=== PATIENT | female | born 1965 | race African-American/Black ===

== ENCOUNTER 2019-05-13 20:02 | Inpatient (IN) | payer SELFPAY ==
[2019-05-13] MEDS ORDERED: Potassium Chloride 20 MEQ TAB ONE (21:29)
[2019-05-13] MEDS ORDERED: Ondansetron ODT 4 MG TAB PO PRN (23:44)
[2019-05-13] MEDS ORDERED: Acetaminophen 650 MG Suppository PR PRN (23:44)
[2019-05-13] MEDS ORDERED: Ondansetron PF 4 MG/2 ML Vial IVP PRN (23:44)
[2019-05-13 23:54] VITALS: BMI 28.0
[2019-05-13] MEDS ORDERED: cefTRIAXone\\ROCEPHIN 1 GM in Sodium Chloride 0.9% 100 ML IVPB SCH (23:59)
--- NOTE | 2019-05-14 02:09 | HP ---
PRIMARY CARE PHYSICIAN: The patient reported she follows with . CODE STATUS: Full code. TIME OF EVALUATION: 08:10 p.m. CHIEF COMPLAINT: Shortness of breath. HISTORY OF PRESENT ILLNESS: The patient is a 54-year-old female patient with past medical history of no significant medical problems except for being a cocaine abuser she reported long time ago. She reported she is clean now, came to the hospital after having severe gradually worsening shortness of breath, has been present for 2 days, associated with hypoxia, needing oxygen, saturation of 90%, temperature was 101.7, also associated with vomiting. The patient had no clear triggers. No alleviating factors. REVIEW OF SYSTEMS: CONSTITUTIONAL: No fever, chills or generalized weakness. RESPIRATORY: The patient has cough. No sputum production. Shortness of breath and hypoxia. CARDIOVASCULAR: No chest pain or palpitation. GASTROINTESTINAL: No nausea. No vomiting, diarrhea, or abdominal pain. COATER ASSOCIATE: No dizziness, headache or feeling lightheaded. GENITOURINARY: No burning on urination. EXTREMITIES: No leg swelling. All other systems were reviewed and negative except for the findings mentioned above. PAST MEDICAL HISTORY: Negative. FAMILY HISTORY: Reviewed and noncontributory to current presentation. PAST SURGICAL HISTORY: No surgical history. PSYCHIATRIC HISTORY: Anxiety and depression. SOCIAL HISTORY: The patient drinks socially every week. Former drug user, used to use crack cocaine, quit a month ago, is home with family. KNOWN ALLERGIES: No known drug allergies. REPORTED MEDICATIONS: None. PHYSICAL EXAMINATION: VITAL SIGNS: Blood pressure 122/80 with heart rate 86, respiratory rate was 18, temperature 99, pain was 0/10 and oxygen saturation was 91% on room air. Also reported to have been below 90s, reason why she received nasal cannula and saturation was 95% on 2 L. GENERAL APPEARANCE: The patient is alert, oriented, no acute distress. HEENT: Normal conjunctivae. Moist oral mucosa. Anicteric. No JVD. RESPIRATORY: Bilateral air entry. The patient has bilateral rales. No wheezes. Symmetric expansion. CARDIOVASCULAR: Normal rate and regular rhythm. No murmurs. No gallop. No edema. ABDOMEN: Soft. Normal bowel sounds. MUSCULOSKELETAL: Baseline range of motion and strength. SKIN: Warm and intact. No pallor. No rash. No redness. Capillary refill seems to be intact. NEURO: No evidence of any new focal weakness. Cranial nerves seems to be intact. PSYCH: The patient is in good mood. No anxiety. Optimal judgment. DIAGNOSTIC STUDIES: Angio showed no PE, multilobar pneumonia. CT abdomen and pelvis with contrast show multiple natalie areas of edema in the subcutaneous tissue nonspecific. LABS: Show white count 6.8, hemoglobin 12.7, MCV 92.1, platelet count 275. Coagulation; D-dimer 3.25. Chemistry; sodium 138, potassium 3.1, chloride 102, carbon dioxide 23, anion gap 16, BUN 8, creatinine 0.89, GFR 79, glucose 96, lactic acid 1.6, magnesium 2.0. LFTs were negative. Urine was done. The patient has urinary tract infection with white count 21 to 50 ASSESSMENT AND PLAN: The patient will be placed in the hospital with following medical problems: 1. Possible multilobar pneumonia. The patient has those findings reported on the CAT scan. The patient is receiving Rocephin and Zithromax, We will follow cultures, we will adjust treatment as needed. 2. Acute hypoxic respiratory failure secondary to underlying pneumonia. The patient needing nasal cannula with saturation 95%. We will continue to give oxygen support. We will monitor and adjust treatment as needed. 3. Possible urinary tract infection. The patient has white count of 21-50 on the UA. The patient receiving already Rocephin. We will follow cultures. We will treat accordingly. 4. Positive D-dimer. CT angio negative for any pulmonary embolism. 5. Hypokalemia, potassium 3.1. This is mild, we will replace electrolytes as needed. We will monitor. 6. Deep venous thrombosis prophylaxis. Job ID: [id number] [facility]
[2019-05-14 03:46] LABS: Amphetamine Not Detected (NotDetected); Barbiturates Screen Not Detected (NotDetected); Benzodiazepine Screen Not Detected (NotDetected); Cocaine Metabolite Screen Detected (NotDetected); Medtox Control Line Valid? VALID (VALID); Medtox Reader # READER 4; Methadone Not Detected (NotDetected); Methamphetamine Not Detected (NotDetected); Opiate Screen Detected (NotDetected); Oxycodone Screen Not Detected (NotDetected); Phencyclidine (PCP) Not Detected (NotDetected); THC/Cannabinoid Screen Not Detected (NotDetected); Tricyclic Screen Not Detected (NotDetected)
[2019-05-14] MEDS ORDERED: Cepastat Lozenges 1 LOZ PO PRN (03:55)
[2019-05-14 06:18] LABS: #Lymphocytes 0.5 thou/uL (1.20-3.40); #Monocytes 0.3 thou/uL (0.11-0.59); #Neutrophils 5.5 thou/uL (1.40-6.50); %Eosinophils 0.1 % (0.0-10.0); %Lymphocytes 7.5 % (21.0-51.0); %Monocytes 4.7 % (0.0-10.0); %Neutrophils 87.7 % (42.0-75.0); Hemoglobin 10.7 g/dL (12.0-16.0); Mean Corpuscular HGB CONC 32.1 g/dL (32.0-36.0); Mean Corpuscular Hemoglobin 30.5 pg (27.0-31.0); Platelet Count 285 thou/uL (130-400); RBC Distribution Width 12.1 % (11.5-14.5); Red Blood Cell (RBC) Count 3.51 mill/uL (4.20-5.40); White Blood Cell (WBC) Count 6.3 thou/uL (4.8-10.8)
[2019-05-14 06:36] LABS: Anion Gap 11 mmol/L (10-20); BUN (Urea Nitrogen) 12 mg/dL (9.8-20.1); Calc. Creatinine Clearance 92 mL/min (70-130); Calcium 7.8 mg/dL (7.8-10.44); Carbon Dioxide 24 mmol/L (22-29); Chloride 106 mmol/L (98-107); Estimated GFR-MDRD 78; Glucose 136 mg/dL (70-105); Potassium 3.8 mmol/L (3.5-5.1); Sodium 137 mmol/L (136-145)
[2019-05-14] MEDS ORDERED: Sodium Chloride 0.9% 1,000 ML IV SCH (06:45)
--- NOTE | 2019-05-14 09:02 | PDOC.PN ---
- Subjective Encounter Start Date: 05/14/19 (f/u multifocal pneumonia) Encounter Start Time: 08:59 Subjective: pt reports improvement since admission - still c/o easy -: sob, chest pain with coughing - Objective Resuscitation Status - Order Detail: 05/13/19 23:44 Resuscitation Status Routine Resuscitation Status: FULL: Full Resuscitation Vital Signs & Weight: Vital Signs (12 hours) Temp Pulse Ox 05/14/19 08:00 94 L 05/14/19 07:00 97.2 F L 05/14/19 03:32 96.8 F L 05/14/19 00:00 96 05/13/19 23:41 97.8 F 05/13/19 23:10 97.8 F Weight Weight 184 lb 7 oz Most Recent Monitor Data Heart Rate from ECG 64 NIBP 151/114 NIBP BP-Mean 126 Respiration from ECG 19 SpO2 93 I&O: 05/13/19 05/14/19 05/15/19 06:59 06:59 06:59 Intake Total 720 Output Total 550 Balance 170 Result Diagrams: 05/14/19 05:48 05/14/19 05:48 EKG Reviewed by me: Yes (tele - sinus) Phys Exam - Physical Examination Constitutional: NAD bibasilar rales Cardiovascular: RRR, no significant murmur Gastrointestinal: soft, non-tender, no distention, positive bowel sounds Musculoskeletal: no edema Neurological: non-focal, moves all 4 limbs Psychiatric: normal affect Skin: no rash Dx/Plan (1) Acute respiratory failure Code(s): J96.00 - ACUTE RESPIRATORY FAILURE, UNSP W HYPOXIA OR HYPERCAPNIA Status: Acute Qualifiers: Respiratory failure complication: hypoxia Qualified Code(s): J96.01 - Acute respiratory failure with hypoxia (2) Pneumonia Code(s): J18.9 - PNEUMONIA, UNSPECIFIED ORGANISM Status: Acute Qualifiers: Pneumonia type: due to unspecified organism Laterality: bilateral Lung location: unspecified part of lung Qualified Code(s): J18.9 - Pneumonia, unspecified organism (3) Anemia Code(s): D64.9 - ANEMIA, UNSPECIFIED Status: Acute (4) Tobacco abuse Code(s): Z72.0 - TOBACCO USE Status: Chronic (5) Constipation Code(s): K59.00 - CONSTIPATION, UNSPECIFIED Status: Chronic Qualifiers: Constipation type: unspecified constipation type Qualified Code(s): K59.00 - Constipation, unspecified (6) Cocaine abuse Code(s): F14.10 - COCAINE ABUSE, UNCOMPLICATED Status: Chronic - Plan * ARF with hypoxia * continue abx for multifocal pneumonia * add scheduled duonebs and inhaled steroid * bibasilar rales - low dose lasix and d/c IVF. Check echo and bnp * tobacco abuse - nicotine patch * constipation - add bowel mecds * drop in hb with report of BRB in stool assoc with constipation as outpatient - monitor here, check CBC in AM. Will need inpt workup if this is present here , otherwise close OP f/u * * dvt prophy -scd's * gi prophy - not indicated * code status full
[2019-05-14] MEDS ORDERED: hydrALAZINE 20 MG/ML VIAL SLOW IVP PRN (09:04)
[2019-05-14] MEDS ORDERED: Furosemide 20 MG/2 ML VIAL SLOW IVP SCH ×3 (09:30→15:00)
[2019-05-14] MEDS: Docusate 100 MG CAP PO SCH ×2 (09:58→19:56)
[2019-05-14] MEDS: Polyethylene Glycol 3350 17 GM Packet PO SCH (09:58)
[2019-05-14] MEDS: Nicotine 7 MG PATCH TD SCH (10:34)
[2019-05-14] MEDS: Budesonide 0.5 MG/2 ML NEB INH SCH ×2 (11:23→19:00)
--- NOTE | 2019-05-14 14:26 | PDOC.EVN ---
Event Note - Event Note Event Note: Called by Rn for pt sats in the 80's despite current neb tx, pt feels short of breath. On my exam shallow breathing, no audible wheezing, tachypneic, with audible basilar rales. Heart - normal s1/s2, no audible murmurs. Current bp is 180's/110's. Pt received 10 mg IV lasix earlier for rales, about to receive hydralazine for blood pressure. CT-A overnight neg for PE - CXR ordered - ABG now - Reviewed BNP and in the 50's - hold on additional lasix for now - Pulmonology consulted - will broaden antibiotics to Cefepime - Start bipap - reviewed plan with RN and RT Reviewed ABG - and normal pO2 with bipap, normal pH Reviewed CXR and patchy infiltrates throughout - will proceed with lasix 20 mg IV now and reassess both UOP and response to tx. Anticipate pt will require additional doses. Await echo result - performed earlier today. 16:38 - called by RN for bp 190's/110's - will add prn clonidine 0.1 mg for sbp > 180. Reviewed echo report and normal EF, hold on further lasix.
[2019-05-14] MEDS ORDERED: Cefepime 2 GM in Sodium Chloride 0.9% 100 ML IVPB SCH (14:30)
[2019-05-14 14:32] LABS: Actual Bicarbonate (HCO3a) 24.7 mEq/L (22-28); CO2 Tension 36.4 mmHg (35.0-45.0); Calcium, Ionized 1.17 mmol/L (1.12-1.30); Carboxyhemoglobin (COHb) 1.1 gm% (0.0-3.0); Hemoglobin (Hb) 12.2 g/dL (12.0-16.0); O2 Tension (PaO2) 94.6 mmHg (80.0-100.0); Potassium - ABG Lab 3.36 mmol/L (3.70-5.30); pH, Arterial 7.45 (7.35-7.45)
[2019-05-14 14:34] LABS: Puncture Site RBA
--- NOTE | 2019-05-14 14:40 | RAD ---
PORTABLE CHEST 1 VIEW: DATE: 05/14/2019. TIME: 2:23 p.m. HISTORY: Shortness of breath. FINDINGS/IMPRESSION: The heart is enlarged. Patchy infiltrates are seen in the lung witt bilaterally, right greater baltazar n left. No pneumothoraces or pleural effusions are identified. POS: [facility]
--- NOTE | 2019-05-14 16:16 | CON ---
DATE OF CONSULTATION: HISTORY OF PRESENT ILLNESS: Sanjuanita Killian is a 54-year-old obese female, who has no primary care physician, presented to the ER last night with shortness of breath and cough, nonproductive. She is a long-term smoker, apparently has used crack cocaine in the past. X-ray shows bilateral bronchopneumonia. CAT scan confirmed this. She was found to have oxygen saturations in the 80s only on low-flow O2. Her temperature is 101.7. She is on the MICU this afternoon when she became progressively more short of breath. Chest x-ray showed bilateral pulmonary infiltrates. Antibiotics were adjusted. Pulmonary was consulted at that time. The patient denies any previous history of TB, pneumonia, or bronchial asthma. PAST MEDICAL HISTORY: Apparently unremarkable for any major medical problems. PAST SURGICAL HISTORY: No surgeries. MEDICATIONS: No chronic medication. ALLERGIES: NO ALLERGIES. SOCIAL HISTORY: She has not been , has no kids. FAMILY HISTORY: She has a cousin who apparently supposed to see her. REVIEW OF SYSTEMS: Otherwise unremarkable. PHYSICAL EXAMINATION: VITAL SIGNS: Sats on the BiPAP are 100%, respirations 32, pulse 81, temperature 97, blood pressure 130/80. CHEST: Bilateral crackles with wheezing. CARDIAC: Normal S1 and S2. ABDOMEN: No masses. LABORATORY DATA: White count 6000, H and H 10 and 30, platelet count 35. PO2 was 94, pCO2 was 36, pH 7.45, BiPAP 80%. Lytes were normal. Liver function, AST slightly elevated at 57. Urine was normal. Drug screen had urine opiates and cocaine. IMPRESSION: 1. Bilateral bronchopneumonia. 2. Tobacco abuse. 3. Cocaine abuse. PLAN: I agree with present treatment. Added steroids, Levaquin. If condition gets worse, she may require intubation and vent support. We will discuss with family as they arrive. TIME SPENT: This is a consultation note, 70 minutes, 50% in direct patient care. Job ID: [id number]
[2019-05-14] MEDS ORDERED: cloNIDine 0.1 MG TAB PO PRN (16:37)
[2019-05-14] MEDS ORDERED: cefTRIAXone\\ROCEPHIN 1 GM in Sodium Chloride 0.9% 100 ML IVPB SCH (17:00)
[2019-05-14] MEDS: methylPREDNISolone Sod Succ/PF 125 MG/2 ML VIAL IVP SCH ×2 (17:32→23:27)
[2019-05-14] MEDS ORDERED: Azithromycin 500 MG in Sodium Chloride 0.9% 250 ML 250 ML IVPB SCH (18:00)
[2019-05-14] MEDS: Cefepime 2 GM in Sodium Chloride 0.9% 100 ML IVPB SCH (21:32)
[2019-05-15] MEDS: Cefepime 2 GM in Sodium Chloride 0.9% 100 ML IVPB SCH ×3 (05:41→21:31)
[2019-05-15] MEDS: methylPREDNISolone Sod Succ/PF 125 MG/2 ML VIAL IVP SCH ×4 (05:41→23:52)
[2019-05-15 05:53] LABS: Anion Gap 14 mmol/L (10-20); BUN (Urea Nitrogen) 14 mg/dL (9.8-20.1); Calc. Creatinine Clearance 80 mL/min (70-130); Carbon Dioxide 23 mmol/L (22-29); Chloride 105 mmol/L (98-107); Estimated GFR-MDRD 67; Glucose 178 mg/dL (70-105); Potassium 3.8 mmol/L (3.5-5.1); Sodium 138 mmol/L (136-145)
[2019-05-15 05:59] LABS: Band 34 % (5-11); Lymphocytes 1 % (21-51); MDiff Complete? YES; Mean Corpuscular HGB CONC 31.8 g/dL (32.0-36.0); Mean Corpuscular Hemoglobin 30.1 pg (27.0-31.0); Mean Corpuscular Volume 94.7 fL (78.0-98.0); Mean Platelet Volume 8.2 fL (7.4-10.4); Monocytes 2 % (0-10); Neutrophil 63 % (42-75); Platelet Count 302 thou/uL (130-400); RBC Distribution Width 12.1 % (11.5-14.5); Red Blood Cell (RBC) Count 3.66 mill/uL (4.20-5.40); White Blood Cell (WBC) Count 12.8 thou/uL (4.8-10.8)
--- NOTE | 2019-05-15 07:36 | RAD ---
EXAM: Single view of the chest HISTORY: Respiratory failure COMPARISON: 05/14/2019 FINDINGS: Single view of the chest shows an enlarged but stable cardiomediastinal silhouette. Airspa ce opacity seen in the left lower lobe consistent with a left lower lobe infiltrate. No pleural effusion is seen. The bones are unremarkable. IMPRESSION: Left lower lobe infiltrate
[2019-05-15] MEDS: Budesonide 0.5 MG/2 ML NEB INH SCH ×2 (07:52→18:38)
--- NOTE | 2019-05-15 08:09 | PDOC.PN ---
- Subjective Encounter Start Date: 05/15/19 (f/u pneumonia) Encounter Start Time: 08:09 Subjective: Pt c/o reflux sx, and has not had a BM. yesterday worsening of -: breathing - required bipap, increase in antibiotics, and steroids. - Objective Resuscitation Status - Order Detail: 05/13/19 23:44 Resuscitation Status Routine Resuscitation Status: FULL: Full Resuscitation Vital Signs & Weight: Vital Signs (12 hours) Temp Pulse Resp Pulse Ox 05/15/19 07:52 58 L 22 H 05/15/19 07:41 97.3 F L 05/15/19 03:51 98.0 F 05/15/19 02:24 70 20 94 L 05/14/19 23:39 99.5 F 05/14/19 22:09 87 20 93 L Weight Admit Weight 184 lb 7 oz Weight 184 lb 3 oz Most Recent Monitor Data Heart Rate from ECG 70 NIBP 166/107 NIBP BP-Mean 126 Respiration from ECG 24 SpO2 98 I&O: 05/14/19 05/15/19 05/16/19 06:59 06:59 06:59 Intake Total 720 1610 Output Total 550 2400 Balance 170 -790 Result Diagrams: 05/15/19 05:23 05/15/19 05:23 EKG Reviewed by me: Yes (tele - sinus 50-60's) Phys Exam - Physical Examination Constitutional: NAD Respiratory: no wheezing, no rhonchi bibasilar rales, slight improvement in air movement Cardiovascular: RRR, no significant murmur Gastrointestinal: soft, non-tender, no distention, positive bowel sounds Musculoskeletal: no edema Neurological: non-focal, moves all 4 limbs Psychiatric: normal affect Dx/Plan (1) Acute respiratory failure Code(s): J96.00 - ACUTE RESPIRATORY FAILURE, UNSP W HYPOXIA OR HYPERCAPNIA Status: Acute Qualifiers: Respiratory failure complication: hypoxia Qualified Code(s): J96.01 - Acute respiratory failure with hypoxia (2) Pneumonia Code(s): J18.9 - PNEUMONIA, UNSPECIFIED ORGANISM Status: Acute Qualifiers: Pneumonia type: due to unspecified organism Laterality: bilateral Lung location: unspecified part of lung Qualified Code(s): J18.9 - Pneumonia, unspecified organism (3) Anemia Code(s): D64.9 - ANEMIA, UNSPECIFIED Status: Acute Qualifiers: Anemia type: unspecified type Qualified Code(s): D64.9 - Anemia, unspecified (4) Tobacco abuse Code(s): Z72.0 - TOBACCO USE Status: Chronic (5) Constipation Code(s): K59.00 - CONSTIPATION, UNSPECIFIED Status: Chronic Qualifiers: Constipation type: unspecified constipation type Qualified Code(s): K59.00 - Constipation, unspecified (6) Cocaine abuse Code(s): F14.10 - COCAINE ABUSE, UNCOMPLICATED Status: Chronic - Plan * * ARF with hypoxia * continue broad spectrum abx and IV steroids * continue duonebs and inhaled steroid * bibasilar rales - low dose lasix and d/c IVF. Check echo and bnp * tobacco abuse - nicotine patch * constipation - change to docusate-senna, and continue miralax * drop in hb with report of BRB in stool assoc with constipation as outpatient - hemoglobin stable * elevated bp's - start amlodipine * gerd - bid ppi - likely secondary to steroids, add prn tums * elevated blood sugars with steroids - add SSI * * monitor in IMCU today, continue prn bipap * * dvt prophy -scd's * gi prophy - starting PPI * code status full.
[2019-05-15] MEDS ORDERED: Calcium Carbonate 500 MG ChewTAB PO PRN (08:13)
--- NOTE | 2019-05-15 08:16 | PRG ---
DATE OF SERVICE: 05/15/2019 SUBJECTIVE: This morning, she is awake, alert, and responsive. X-ray still shows bilateral pulmonary diffuse infiltrates consistent with atypical pneumonia, though she states she is feeling better. OBJECTIVE: VITAL SIGNS: Respiratory rate 18, pulse 58, temperature 97, blood pressure 166/107. CHEST: Decreased breath sounds. No wheezing. CARDIAC: Normal S1, S2. No gallops. ABDOMEN: No masses. IMPRESSION: Bilateral bronchopneumonia. Cultures so far negative. PLAN: Continue Maxipime, Levaquin, steroids. We will follow. Job ID: [id number] [facility]
[2019-05-15] MEDS ORDERED: HumaLOG 300 UNITS/3 ML VIAL SC PRN ×2 (08:29→18:56)
[2019-05-15] MEDS ORDERED: Dextrose 50% Abboject 50 ML SYRINGE SLOW IVP PRN (08:29)
[2019-05-15] MEDS ORDERED: Dextrose 5% in Water 1,000 ML IV PRN (08:29)
[2019-05-15] MEDS: Amlodipine 5 MG TAB PO SCH (09:54)
[2019-05-15] MEDS: Nicotine 7 MG PATCH TD SCH (09:55)
[2019-05-15] MEDS: Polyethylene Glycol 3350 17 GM Packet PO SCH (09:55)
[2019-05-15] MEDS: Senokot S 8.6-50 MG TAB PO SCH ×2 (09:55→20:36)
[2019-05-15] MEDS: Diabetic Tussin 200 MG/10 ML UDCUP PO PRN ×2 (16:36→21:31)
[2019-05-16 05:13] LABS: Anion Gap 13 mmol/L (10-20); BUN (Urea Nitrogen) 15 mg/dL (9.8-20.1); Band 32 % (5-11); Calc. Creatinine Clearance 82 mL/min (70-130); Calcium 8.5 mg/dL (7.8-10.44); Carbon Dioxide 24 mmol/L (22-29); Chloride 106 mmol/L (98-107); Estimated GFR-MDRD 69; Glucose 146 mg/dL (70-105); Hemoglobin 10.8 g/dL (12.0-16.0); Lymphocytes 1 % (21-51); MDiff Complete? YES; Mean Corpuscular HGB CONC 32.3 g/dL (32.0-36.0); Mean Corpuscular Hemoglobin 30.6 pg (27.0-31.0); Mean Corpuscular Volume 94.7 fL (78.0-98.0); Metamyelocyte 1 % (0-0); Monocytes 1 % (0-10); Neutrophil 65 % (42-75); Platelet Count 295 thou/uL (130-400); Platelet Morphology Comment Appears Adequate; Potassium 3.8 mmol/L (3.5-5.1); RBC Distribution Width 12.2 % (11.5-14.5); Red Blood Cell (RBC) Count 3.53 mill/uL (4.20-5.40); Sodium 139 mmol/L (136-145); White Blood Cell (WBC) Count 12.3 thou/uL (4.8-10.8)
[2019-05-16] MEDS: Cefepime 2 GM in Sodium Chloride 0.9% 100 ML IVPB SCH ×3 (06:15→21:07)
[2019-05-16] MEDS: methylPREDNISolone Sod Succ/PF 125 MG/2 ML VIAL IVP SCH (06:16)
[2019-05-16] MEDS: Budesonide 0.5 MG/2 ML NEB INH SCH ×2 (07:58→19:47)
--- NOTE | 2019-05-16 08:00 | RAD ---
XR Chest 1 View Portable HISTORY: Respiratory distress COMPARISON: Previous day FINDINGS: The heart size is prominent but stable. Bilateral patchy infiltrates again noted. No pneumo thoraces or large effusions are seen.
[2019-05-16] MEDS: Amlodipine 5 MG TAB PO SCH (08:17)
[2019-05-16] MEDS: Senokot S 8.6-50 MG TAB PO SCH ×2 (08:18→19:51)
[2019-05-16] MEDS: Polyethylene Glycol 3350 17 GM Packet PO SCH (08:18)
[2019-05-16] MEDS: Nicotine 7 MG PATCH TD SCH (08:19)
--- NOTE | 2019-05-16 08:57 | PRG ---
DATE OF SERVICE: 05/16/2019 SUBJECTIVE: She says she is better this morning. She is still short of breath. She is still coughing sputum, which is relatively clear. OBJECTIVE: VITAL SIGNS: 93% saturations on 3 L, pulse 74_ respiratory rate 20, blood pressure 150/98. CHEST: Bilateral crackles. CARDIAC: Normal S1 and S2. No gallops. ABDOMEN: No masses. LABORATORY DATA: Cultures are negative. IMAGING STUDIES: X-ray still shows bilateral infiltrates, this is somewhat better. IMPRESSION: 1. Bilateral bronchopneumonia, probably atypical. 2. Substance abuse. 3. Chronic obstructive pulmonary disease. PLAN: Switch over to oral Levaquin, oral prednisone tomorrow. She can be transferred out of the MICU. Continue PT. Job ID: [id number]
--- NOTE | 2019-05-16 09:15 | PDOC.PN ---
- Subjective Encounter Start Date: 05/16/19 (f/u pneumonia) Encounter Start Time: 09:13 Subjective: Pt overall feeling better, cough is more productive. Has some -: long standing right calf pain - reports pain today, better -: with scd's - Objective Resuscitation Status - Order Detail: 05/13/19 23:44 Resuscitation Status Routine Resuscitation Status: FULL: Full Resuscitation Vital Signs & Weight: Vital Signs (12 hours) Temp Pulse Resp BP Pulse Ox 05/16/19 08:17 73 156/95 H 05/16/19 08:00 97.2 F L 93 L 05/16/19 07:58 73 20 93 L 05/16/19 07:57 74 24 H 94 L 05/16/19 07:47 94 L 05/16/19 04:00 98.4 F 05/16/19 00:00 98 05/15/19 23:35 98.0 F 05/15/19 22:16 92 23 H 93 L Weight Admit Weight 184 lb 7 oz Weight 184 lb 3 oz Most Recent Monitor Data Heart Rate from ECG 78 NIBP 153/98 NIBP BP-Mean 116 Respiration from ECG 22 SpO2 93 I&O: 05/15/19 05/16/19 05/17/19 06:59 06:59 06:59 Intake Total 1610 1430 Output Total 2400 2130 Balance -790 -700 Result Diagrams: 05/16/19 04:16 05/16/19 04:16 Additional Labs: Accuchecks 05/16/19 05/15/19 05/15/19 05:50 19:46 15:18 POC Glucose 128 H 181 H 148 H EKG Reviewed by me: Yes (tele - sinus 80's) Phys Exam - Physical Examination Constitutional: NAD Respiratory: no wheezing, no rhonchi slight improvement in air movement, persistent dry rales left > right Cardiovascular: RRR, no significant murmur Gastrointestinal: soft, non-tender, no distention, positive bowel sounds Musculoskeletal: no edema no ttp along right calf or edema Neurological: non-focal, moves all 4 limbs Skin: no rash Dx/Plan (1) Acute respiratory failure Code(s): J96.00 - ACUTE RESPIRATORY FAILURE, UNSP W HYPOXIA OR HYPERCAPNIA Status: Acute Qualifiers: Respiratory failure complication: hypoxia Qualified Code(s): J96.01 - Acute respiratory failure with hypoxia (2) Pneumonia Code(s): J18.9 - PNEUMONIA, UNSPECIFIED ORGANISM Status: Acute Qualifiers: Pneumonia type: due to unspecified organism Laterality: bilateral Lung location: unspecified part of lung Qualified Code(s): J18.9 - Pneumonia, unspecified organism (3) Anemia Code(s): D64.9 - ANEMIA, UNSPECIFIED Status: Acute Qualifiers: Anemia type: unspecified type Qualified Code(s): D64.9 - Anemia, unspecified (4) Tobacco abuse Code(s): Z72.0 - TOBACCO USE Status: Chronic (5) Constipation Code(s): K59.00 - CONSTIPATION, UNSPECIFIED Status: Chronic Qualifiers: Constipation type: unspecified constipation type Qualified Code(s): K59.00 - Constipation, unspecified (6) Cocaine abuse Code(s): F14.10 - COCAINE ABUSE, UNCOMPLICATED Status: Chronic - Plan * clinically improved today * * ARF with hypoxia secondary to atypical pneumonia- appreciate Pulmonology consult * continue broad spectrum abx, IV steroids changed to BID * continue duonebs and inhaled steroid * bibasilar rales - suspect undx pulmonary fibrosis, normal echo * supplemental O2, bipap at night prn * tobacco abuse - nicotine patch * constipation - continue docusate-senna, and continue miralax * Ongoing BRB in stool assoc with constipation as outpatient - hemoglobin stable - continue to plan for outpatient evaluation * elevated bp's - continue amlodipine * gerd - bid ppi and prn tums - continue both * elevated blood sugars with steroids - continue SSI * * transfer to medical floor - request placed * * dvt prophy -scd's * gi prophy - PPI * code status full. * reviewed plan of care with patient, no questions or further needs at end of eval
[2019-05-16] MEDS: methylPREDNISolone Sod Succ 40 MG VIAL IVP SCH (18:05)
[2019-05-16] MEDS: Acetaminophen 325 MG TAB PO PRN (18:05)
[2019-05-17] MEDS: Cefepime 2 GM in Sodium Chloride 0.9% 100 ML IVPB SCH (05:14)
[2019-05-17] MEDS: methylPREDNISolone Sod Succ 40 MG VIAL IVP SCH (05:15)
[2019-05-17] MEDS: Budesonide 0.5 MG/2 ML NEB INH SCH ×2 (06:20→18:26)
[2019-05-17] MEDS: Amlodipine 5 MG TAB PO SCH (08:15)
[2019-05-17] MEDS: Polyethylene Glycol 3350 17 GM Packet PO SCH (08:16)
[2019-05-17] MEDS: Senokot S 8.6-50 MG TAB PO SCH (08:17)
[2019-05-17] MEDS: Nicotine 7 MG PATCH TD SCH (11:18)
[2019-05-17] MEDS ORDERED: Simethicone Chewable 80 MG TAB PO PRN (13:31)
--- NOTE | 2019-05-17 13:34 | PDOC.PN ---
- Subjective Encounter Start Date: 05/17/19 (f/u ARF with hypoxia) Encounter Start Time: 13:32 Subjective: Pt reports breathing is improved. Denies n/v. Having multiple soft stools -: Some coughing and LOPEZ -: reports zantac works better and having some difficulty belching - Objective Resuscitation Status - Order Detail: 05/13/19 23:44 Resuscitation Status Routine Resuscitation Status: FULL: Full Resuscitation Vital Signs & Weight: Vital Signs (12 hours) Temp Pulse Resp BP BP Pulse Ox 05/17/19 11:19 97.5 F L 92 18 135/91 H 95 05/17/19 10:28 87 20 05/17/19 08:21 94 L 05/17/19 08:15 87 146/101 H 05/17/19 07:32 98.0 F 87 18 146/101 H 94 L 05/17/19 06:36 94 L 05/17/19 06:20 88 20 05/17/19 04:00 98.1 F 88 18 164/90 H 94 L 05/17/19 03:03 94 L Weight Admit Weight 184 lb 7 oz Weight 184 lb 3 oz Most Recent Monitor Data Heart Rate from ECG 98 NIBP 129/81 NIBP BP-Mean 97 Respiration from ECG 24 SpO2 97 I&O: 05/16/19 05/17/19 05/18/19 06:59 06:59 06:59 Intake Total 1430 920 Output Total 2130 Balance -700 920 Result Diagrams: 05/16/19 04:16 05/16/19 04:16 Additional Labs: Accuchecks 05/17/19 05/17/19 05/16/19 11:15 04:46 19:29 POC Glucose 139 H 103 130 H Phys Exam - Physical Examination Constitutional: NAD improved air movement with bibasilar rales (also improved) Cardiovascular: RRR, no significant murmur Gastrointestinal: soft, non-tender, no distention, positive bowel sounds Musculoskeletal: no edema Neurological: non-focal, moves all 4 limbs Skin: no rash Dx/Plan (1) Acute respiratory failure Code(s): J96.00 - ACUTE RESPIRATORY FAILURE, UNSP W HYPOXIA OR HYPERCAPNIA Status: Acute Qualifiers: Respiratory failure complication: hypoxia Qualified Code(s): J96.01 - Acute respiratory failure with hypoxia (2) Pneumonia Code(s): J18.9 - PNEUMONIA, UNSPECIFIED ORGANISM Status: Acute Qualifiers: Pneumonia type: due to unspecified organism Laterality: bilateral Lung location: unspecified part of lung Qualified Code(s): J18.9 - Pneumonia, unspecified organism (3) Anemia Code(s): D64.9 - ANEMIA, UNSPECIFIED Status: Acute Qualifiers: Anemia type: unspecified type Qualified Code(s): D64.9 - Anemia, unspecified (4) Tobacco abuse Code(s): Z72.0 - TOBACCO USE Status: Chronic (5) Constipation Code(s): K59.00 - CONSTIPATION, UNSPECIFIED Status: Resolved Qualifiers: Constipation type: unspecified constipation type Qualified Code(s): K59.00 - Constipation, unspecified (6) Cocaine abuse Code(s): F14.10 - COCAINE ABUSE, UNCOMPLICATED Status: Chronic - Plan * continues to improve * ARF with hypoxia secondary to atypical pneumonia- appreciate Pulmonology consult * de-escalating abx to levaquin only, oral steroids * continue duonebs and inhaled steroid * bibasilar rales - suspect undx pulmonary fibrosis, normal echo * supplemental O2, bipap at night prn * tobacco abuse - nicotine patch * constipation resolved, change bowel meds to prn * Ongoing BRB in stool assoc with constipation as outpatient - hemoglobin stable - continue to plan for outpatient evaluation * imprved bp's - continue amlodipine * gerd - change to pepcid (zantac not available here) and continue prn tums * * elevated blood sugars with steroids - resolved -d/c SSI and accuchecks * * dvt prophy -scd's * gi prophy - on H2 ethel * code status full. * reviewed plan of care with patient, no questions or further needs at end of eval * anticipate pt will be here a few more days for acute needs and may require home oxygen .
[2019-05-17] MEDS: Famotidine 20 MG TAB PO SCH (20:14)
[2019-05-18] MEDS: Senokot S 8.6-50 MG TAB PO PRN ×2 (04:22→20:20)
[2019-05-18 06:20] LABS: Anion Gap 10 mmol/L (10-20); BUN (Urea Nitrogen) 18 mg/dL (9.8-20.1); Calc. Creatinine Clearance 84 mL/min (70-130); Calcium 8.5 mg/dL (7.8-10.44); Carbon Dioxide 27 mmol/L (22-29); Chloride 106 mmol/L (98-107); Estimated GFR-MDRD 70; Glucose 79 mg/dL (70-105); Potassium 4.1 mmol/L (3.5-5.1); Sodium 139 mmol/L (136-145)
[2019-05-18 06:25] LABS: Band 6 % (5-11); Eosinophils 1 % (0-10); Hemoglobin 11.5 g/dL (12.0-16.0); Lymphocytes 2 % (21-51); MDiff Complete? YES; Mean Corpuscular HGB CONC 32.1 g/dL (32.0-36.0); Mean Corpuscular Hemoglobin 30.1 pg (27.0-31.0); Mean Corpuscular Volume 93.9 fL (78.0-98.0); Mean Platelet Volume 8.4 fL (7.4-10.4); Metamyelocyte 2 % (0-0); Monocytes 5 % (0-10); Myelocyte 1 % (0-0); Neutrophil 82 % (42-75); Platelet Count 148 thou/uL (130-400); Platelet Morphology Comment Appears Adequate; RBC Distribution Width 12.3 % (11.5-14.5); RBC Morphology Normal; Reactive Lymphocytes 1 % (0-10); Red Blood Cell (RBC) Count 3.83 mill/uL (4.20-5.40); White Blood Cell (WBC) Count 9.6 thou/uL (4.8-10.8)
[2019-05-18] MEDS ORDERED: Morphine 2 MG/ML SYRINGE SLOW IVP SCH (07:30)
[2019-05-18] MEDS: Amlodipine 5 MG TAB PO SCH (07:32)
[2019-05-18] MEDS: Famotidine 20 MG TAB PO SCH ×2 (07:32→20:20)
[2019-05-18] MEDS: predniSONE 20 MG TAB PO SCH (07:32)
[2019-05-18] MEDS ORDERED: Morphine 4 MG/ML VIAL SLOW IVP PRN (08:45)
--- NOTE | 2019-05-18 08:49 | PDOC.PN ---
- Subjective Encounter Start Date: 05/18/19 (f/u pneumonia) Encounter Start Time: 08:47 Subjective: pt c/o severe abd pain - upper abd, with nausea and one episode -: of vomiting with taking juice. onset at 4 am this morning. Reports -: 3 soft bms yesterday, small bm today without change in pain - Objective Resuscitation Status - Order Detail: 05/13/19 23:44 Resuscitation Status Routine Resuscitation Status: FULL: Full Resuscitation Vital Signs & Weight: Vital Signs (12 hours) Temp Pulse Resp BP BP Pulse Ox 05/18/19 07:34 98 05/18/19 07:32 78 136/87 05/18/19 07:00 98.0 F 78 16 136/87 05/18/19 02:47 92 L 05/18/19 00:06 90 16 Weight Admit Weight 184 lb 7 oz Weight 184 lb 3 oz Most Recent Monitor Data Heart Rate from ECG 98 NIBP 129/81 NIBP BP-Mean 97 Respiration from ECG 24 SpO2 97 I&O: 05/17/19 05/18/19 05/19/19 06:59 06:59 06:59 Intake Total 920 2630 Balance 920 2630 Result Diagrams: 05/18/19 05:49 05/18/19 05:49 Additional Labs: Accuchecks 05/18/19 05/17/19 05/17/19 04:05 19:21 16:50 POC Glucose 76 119 H 121 H 05/17/19 11:15 POC Glucose 139 H Phys Exam - Physical Examination Constitutional: NAD appears uncomfortable with laying on side bibasilar rales unchanged since admission Cardiovascular: RRR, no significant murmur Gastrointestinal: soft, positive bowel sounds ttp throughout, no palpable abnormalities, no rebound/guarding Musculoskeletal: no edema Neurological: moves all 4 limbs Psychiatric: normal affect Dx/Plan (1) Abdominal pain Code(s): R10.9 - UNSPECIFIED ABDOMINAL PAIN Status: Acute (2) Acute respiratory failure Code(s): J96.00 - ACUTE RESPIRATORY FAILURE, UNSP W HYPOXIA OR HYPERCAPNIA Status: Acute Qualifiers: Respiratory failure complication: hypoxia Qualified Code(s): J96.01 - Acute respiratory failure with hypoxia (3) Pneumonia Code(s): J18.9 - PNEUMONIA, UNSPECIFIED ORGANISM Status: Acute Qualifiers: Pneumonia type: due to unspecified organism Laterality: bilateral Lung location: unspecified part of lung Qualified Code(s): J18.9 - Pneumonia, unspecified organism (4) Anemia Code(s): D64.9 - ANEMIA, UNSPECIFIED Status: Acute Qualifiers: Anemia type: unspecified type Qualified Code(s): D64.9 - Anemia, unspecified (5) Tobacco abuse Code(s): Z72.0 - TOBACCO USE Status: Chronic (6) Constipation Code(s): K59.00 - CONSTIPATION, UNSPECIFIED Status: Resolved Qualifiers: Constipation type: unspecified constipation type Qualified Code(s): K59.00 - Constipation, unspecified (7) Cocaine abuse Code(s): F14.10 - COCAINE ABUSE, UNCOMPLICATED Status: Chronic - Plan * acute abd pain in a patient on steroids and antibiotics * check abd XR * start prep for CT with contrast * npo * IVF for hydration * BID PPI IV * morphine prn for pain * Pneumonia - * continue steroids, nebs, antibiotics * HTN - bp's well controlled * * dvt prophy - scd's * gi prophy - has been on PPI, changed to H2 ethel yesterday per patient request * code status full * * reviewed plan of care with patient, no questions or further needs at end of eval. * communicated plan of care with patient's nurse
[2019-05-18] MEDS ORDERED: Morphine 2 MG/ML SYRINGE SLOW IVP PRN (09:02)
--- NOTE | 2019-05-18 09:06 | RAD ---
CHEST 2 VIEWS: Date: 05/18/19 COMPARISON: 05/13/19 and 05/16/19 exams. HISTORY: Respiratory distress. FINDINGS: Heart size is enlarged. Bilateral patchy infiltrative lung changes actually appear slightly improved as compared to the prior examination, with less confluent lung changes. IMPRESSION: Slight improvement to patchy bilateral lung changes. POS: [facility]
[2019-05-18] MEDS: Sodium Chloride 0.9% 1,000 ML IV SCH ×2 (09:12→23:28)
[2019-05-18] MEDS: Pantoprazole 40 MG VIAL IVP SCH ×2 (09:12→20:20)
--- NOTE | 2019-05-18 09:15 | RAD ---
Exam: Abdomen one view HISTORY: Pain. FINDINGS: Moderate amount of fecal material in the colon. Correlate for constipation. No suspicious d ensities in the abdomen or pelvis. No evidence of small bowel dilatation. No pneumoperitoneum on this supine projection. IMPRESSION: Correlate for constipation.
[2019-05-18] MEDS: Budesonide 0.5 MG/2 ML NEB INH SCH ×2 (10:20→18:18)
--- NOTE | 2019-05-18 10:57 | PRG ---
DATE OF SERVICE: 05/18/2019 SUBJECTIVE: Sanjuanita Killian is much improved this morning. X-ray shows marked resolution of the pulmonary infiltrates. OBJECTIVE: VITAL SIGNS: Saturations are 90% on 2 L, blood pressure 136/87, pulse 78, temperature 98. CHEST: No wheezing or crackles. CARDIAC: Normal S1 and S2. No gallops. ABDOMEN: No masses. LABORATORY DATA: White count is normal. H and H unremarkable. Lytes are normal. IMPRESSION: Respiratory failure, bilateral pneumonia, atypical much improved. PLAN: Pulmonary greco, ready to be discharged to home any time. Continue PT, supportive care. Refrain from smoking. Job ID: [id number]
--- NOTE | 2019-05-18 11:59 | CT ---
ABDOMEN CT WITHOUT CONTRAST PELVIC CT WITHOUT CONTRAST: COMPARISON: 05/13/2019 HISTORY: Abdominal pain. Pneumonia. FINDINGS: ABDOMEN CT: Groundglass opacities along with linear opacities in lung bases likely represent edema superimposed u airam chronic change. Small focus of atelectasis in the right lower lobe has developed since the previous exam. There is cardiomegaly without significant pericardial fluid. Small hiatal hernia is redemonstrated. Limited evaluation of the solid organs by the lack of IV contrast. Grossly no solid organ abnormality . Unremarkable gallbladder. Bilaterally no uropathy. No gastrohepatic, retrocrural, or periportal lymphadenopathy. Stable mild stranding of the abdominal mesentery. No mass, free air, or significant free fluid. There is a nonspecific enlarged right lower quadrant lymph node measuring 0.8 x 0.9 cm. Gastric mucosa, duodenum, and multiple normal caliber small bowel loops are identified. No evidence o f small bowel obstruction. Ileocecal junction is normal. Normal caliber appendix. Scattered fecal material in a nondistended, nondilated colon. CT PELVIS: Uterus and adnexal structures are unremarkable for acute abnormality. There is the possibility of a u terine leiomyoma in the left aspect of the uterus measuring 2.6 x 2.9 cm.. There is complex fluid in the pelvis, similar to the previous examination. Unremarkable urinary bladder. No lytic or blastic lesions in the osseous structures. Heterogeneous attenuation of the subcutaneous fat likely representing subcutaneous edema, unchanged. IMPRESSION: 1. Lung parenchymal changes suggesting edema with possible infiltrate. 2. No evidence of bowel obstruction. Normal caliber appendix. 3. Possible uterine leiomyoma in the left aspect of the uterus, incompletely evaluated. 4. Complex fluid in the pelvis, unchanged. Transcribed Date/Time: 05/18/2019 12:24 PM
[2019-05-18] MEDS: Nicotine 7 MG PATCH TD SCH (15:27)
--- NOTE | 2019-05-18 16:32 | PDOC.EVN ---
Event Note - Event Note Event Note: checked with RN - reports the pt describes the pain as tolerable and only with moving. Given xray findings of stool in the colon - request RN offer a dose of miralax to the patient. No acute findings on CT abd/pelvis with oral contrast only. Will advance diet, request RN d/c IVF when pt is taking PO, and continue to monitor pain. No questions at end of call.
[2019-05-18] MEDS: Polyethylene Glycol 3350 17 GM Packet PO PRN (16:36)
[2019-05-19] MEDS: Budesonide 0.5 MG/2 ML NEB INH SCH ×2 (06:13→18:08)
[2019-05-19] MEDS: Pantoprazole 40 MG VIAL IVP SCH (09:11)
[2019-05-19] MEDS: Famotidine 20 MG TAB PO SCH ×2 (09:11→20:19)
[2019-05-19] MEDS: predniSONE 20 MG TAB PO SCH (09:11)
[2019-05-19] MEDS: Amlodipine 5 MG TAB PO SCH (09:11)
[2019-05-19] MEDS: Polyethylene Glycol 3350 17 GM Packet PO PRN (09:18)
[2019-05-19] MEDS: Nicotine 7 MG PATCH TD SCH (09:19)
--- NOTE | 2019-05-19 09:30 | PRG ---
DATE OF SERVICE: 05/19/2019 SUBJECTIVE: This morning, she is better. Less abdominal pain. OBJECTIVE: VITAL SIGNS: Saturations are 96%, respirations 21, temperature 97, pulse 89, and blood pressure 129/78. CHEST: Reveals no wheezing or crackles. CARDIAC: Normal S1 and S2. No gallops. ABDOMEN: No masses. Abdominal pain, constipation. DIAGNOSTIC DATA: CT abdomen, no acute changes were seen. IMPRESSION: 1. Bilateral pneumonia, improved. 2. Respiratory failure. 3. Constipation. PLAN: Pulmonary-greco, she is going to be discharged home anytime on oral medication. Job ID: [id number]
[2019-05-19] MEDS ORDERED: Albuterol Sulfate 1.25 MG/3 ML NEB NEB PRN (14:10)
--- NOTE | 2019-05-19 14:22 | PDOC.PN ---
- Subjective Encounter Start Date: 05/19/19 (f/u pneumonia) Encounter Start Time: 14:21 Subjective: Pt is feeling better today, felt short of breath with ambulation -: hypoxic to 82%. Denies any complaints. Small BM today, -: passing gas - Objective Resuscitation Status - Order Detail: 05/13/19 23:44 Resuscitation Status Routine Resuscitation Status: FULL: Full Resuscitation Vital Signs & Weight: Vital Signs (12 hours) Temp Pulse Resp BP BP BP Pulse Ox 05/19/19 11:53 97.9 F 78 26 H 130/80 82 L 05/19/19 10:19 82 18 97 05/19/19 09:11 89 129/78 05/19/19 08:00 97.9 F 89 21 H 129/78 96 05/19/19 06:13 78 20 98 05/19/19 04:37 98.8 F 71 16 122/77 97 Weight Admit Weight 184 lb 7 oz Weight 184 lb 3 oz Most Recent Monitor Data Heart Rate from ECG 98 NIBP 129/81 NIBP BP-Mean 97 Respiration from ECG 24 SpO2 97 I&O: 05/18/19 05/19/19 05/20/19 06:59 06:59 06:59 Intake Total 2630 Balance 2630 Result Diagrams: 05/18/19 05:49 05/18/19 05:49 Additional Labs: Accuchecks 05/18/19 16:18 POC Glucose 94 Phys Exam - Physical Examination Constitutional: NAD Respiratory: no wheezing, no rhonchi left basilar rales - unchanged Cardiovascular: RRR, no significant murmur Gastrointestinal: soft, non-tender, no distention, positive bowel sounds Musculoskeletal: no edema Neurological: non-focal, moves all 4 limbs Psychiatric: normal affect Dx/Plan (1) Abdominal pain Code(s): R10.9 - UNSPECIFIED ABDOMINAL PAIN Status: Resolved (2) Acute respiratory failure Code(s): J96.00 - ACUTE RESPIRATORY FAILURE, UNSP W HYPOXIA OR HYPERCAPNIA Status: Acute Qualifiers: Respiratory failure complication: hypoxia Qualified Code(s): J96.01 - Acute respiratory failure with hypoxia (3) Pneumonia Code(s): J18.9 - PNEUMONIA, UNSPECIFIED ORGANISM Status: Acute Qualifiers: Pneumonia type: due to unspecified organism Laterality: bilateral Lung location: unspecified part of lung Qualified Code(s): J18.9 - Pneumonia, unspecified organism (4) Anemia Code(s): D64.9 - ANEMIA, UNSPECIFIED Status: Acute Qualifiers: Anemia type: unspecified type Qualified Code(s): D64.9 - Anemia, unspecified (5) Tobacco abuse Code(s): Z72.0 - TOBACCO USE Status: Chronic (6) Constipation Code(s): K59.00 - CONSTIPATION, UNSPECIFIED Status: Acute Qualifiers: Constipation type: unspecified constipation type Qualified Code(s): K59.00 - Constipation, unspecified (7) Cocaine abuse Code(s): F14.10 - COCAINE ABUSE, UNCOMPLICATED Status: Chronic - Plan * * acute abd pain resolved * change PPI to PO once daily * add lactulose prn for constipation * Pneumonia - * steroids de-escalated and on oral antibiotics for a few more days * need to determine oxygen needs - check in AM * wean nebs to q6h * HTN - bp's well controlled - continue amlodipine * * dvt prophy - scd's * gi prophy - ppi due to steroids * code status full * * reviewed plan of care with patient, no questions or further needs at end of eval. * home tomorrow if not oxygen requiring - requested pt be checked with ambulation in AM
[2019-05-20 05:43] LABS: Anion Gap 14 mmol/L (10-20); BUN (Urea Nitrogen) 19 mg/dL (9.8-20.1); Calc. Creatinine Clearance 73 mL/min (70-130); Calcium 9.2 mg/dL (7.8-10.44); Carbon Dioxide 30 mmol/L (22-29); Chloride 98 mmol/L (98-107); Estimated GFR-MDRD 60; Glucose 82 mg/dL (70-105); Potassium 4.1 mmol/L (3.5-5.1); Sodium 138 mmol/L (136-145)
[2019-05-20] MEDS: Budesonide 0.5 MG/2 ML NEB INH SCH ×2 (06:37→18:41)
[2019-05-20] MEDS: predniSONE 20 MG TAB PO SCH (08:27)
[2019-05-20] MEDS: Amlodipine 5 MG TAB PO SCH (08:27)
[2019-05-20] MEDS: Famotidine 20 MG TAB PO SCH ×2 (08:28→20:45)
[2019-05-20] MEDS: Nicotine 7 MG PATCH TD SCH ×2 (09:16→17:37)
--- NOTE | 2019-05-20 18:42 | PDOC.PN ---
- Subjective Encounter Start Date: 05/20/19 (f/u pneumonia) Encounter Start Time: 15:00 Subjective: Pt without complaints, reports abd pain resolved. Notes she has -: not had as much fluids as she would at home. Denies any new -: concerns. - Objective Resuscitation Status - Order Detail: 05/13/19 23:44 Resuscitation Status Routine Resuscitation Status: FULL: Full Resuscitation Vital Signs & Weight: Vital Signs (12 hours) Temp Pulse Resp BP BP Pulse Ox 05/20/19 13:55 81 20 95 05/20/19 08:27 81 111/69 05/20/19 08:00 95 05/20/19 07:00 98.6 F 81 22 H 111/69 95 Weight Admit Weight 184 lb 7 oz Weight 184 lb 3 oz Most Recent Monitor Data Heart Rate from ECG 98 NIBP 129/81 NIBP BP-Mean 97 Respiration from ECG 24 SpO2 97 I&O: 05/19/19 05/20/19 05/21/19 06:59 06:59 06:59 Intake Total 1740 Balance 1740 Result Diagrams: 05/18/19 05:49 05/20/19 04:15 Phys Exam - Physical Examination Constitutional: NAD Respiratory: no wheezing, no rhonchi faint left basilar rales Cardiovascular: RRR, no significant murmur Gastrointestinal: soft, non-tender, no distention, positive bowel sounds Musculoskeletal: no edema Neurological: non-focal, moves all 4 limbs Psychiatric: normal affect Dx/Plan (1) Abdominal pain Code(s): R10.9 - UNSPECIFIED ABDOMINAL PAIN Status: Resolved (2) Acute respiratory failure Code(s): J96.00 - ACUTE RESPIRATORY FAILURE, UNSP W HYPOXIA OR HYPERCAPNIA Status: Acute Qualifiers: Respiratory failure complication: hypoxia Qualified Code(s): J96.01 - Acute respiratory failure with hypoxia (3) Pneumonia Code(s): J18.9 - PNEUMONIA, UNSPECIFIED ORGANISM Status: Acute Qualifiers: Pneumonia type: due to unspecified organism Laterality: bilateral Lung location: unspecified part of lung Qualified Code(s): J18.9 - Pneumonia, unspecified organism (4) Anemia Code(s): D64.9 - ANEMIA, UNSPECIFIED Status: Acute Qualifiers: Anemia type: unspecified type Qualified Code(s): D64.9 - Anemia, unspecified (5) Tobacco abuse Code(s): Z72.0 - TOBACCO USE Status: Chronic (6) Constipation Code(s): K59.00 - CONSTIPATION, UNSPECIFIED Status: Acute Qualifiers: Constipation type: unspecified constipation type Qualified Code(s): K59.00 - Constipation, unspecified (7) Cocaine abuse Code(s): F14.10 - COCAINE ABUSE, UNCOMPLICATED Status: Chronic - Plan * acute abd pain resolved - continue both prn and scheduled meds * Slight increase in creatinine today - encouraged pt to increase PO intake. Recheck in AM * Pneumonia * steroids de-escalated and on oral antibiotics for a few more days * needs oxygen and not funded - case management consult for assistance * wean nebs to q6h * Needs meds and unfunded - case management to assist * HTN - bp's well controlled - continue amlodipine * Home when oxygen can be arranged, or if pt does not require * * dvt prophy - scd's * gi prophy - ppi due to steroids * code status full * * reviewed plan of care with patient, no questions or further needs at end of eval. * home when oxygen available along with other meds and if no change in renal function
[2019-05-21 05:23] LABS: Anion Gap 11 mmol/L (10-20); BUN (Urea Nitrogen) 20 mg/dL (9.8-20.1); Calc. Creatinine Clearance 83 mL/min (70-130); Calcium 8.6 mg/dL (7.8-10.44); Carbon Dioxide 31 mmol/L (22-29); Chloride 98 mmol/L (98-107); Estimated GFR-MDRD 69; Glucose 88 mg/dL (70-105); Sodium 136 mmol/L (136-145)
[2019-05-21] MEDS: Budesonide 0.5 MG/2 ML NEB INH SCH ×2 (07:35→18:21)
[2019-05-21] MEDS: Acetaminophen 325 MG TAB PO PRN ×3 (08:09→21:18)
[2019-05-21] MEDS: predniSONE 20 MG TAB PO SCH (08:10)
[2019-05-21] MEDS: Amlodipine 5 MG TAB PO SCH (08:10)
[2019-05-21] MEDS: Famotidine 20 MG TAB PO SCH ×2 (08:10→21:18)
[2019-05-21] MEDS ORDERED: Methyl Salicylate/Menthol 85 GM TUBE TOP PRN (13:22)
--- NOTE | 2019-05-21 13:24 | PDOC.PN ---
- Subjective Encounter Start Date: 05/21/19 (f/u pneumonia) Encounter Start Time: 13:22 Subjective: Pt c/o new left leg pain/cramping today, better but not resolved. -: reports breathing is good. Also c/o pain/sores in her mouth - Objective Resuscitation Status - Order Detail: 05/13/19 23:44 Resuscitation Status Routine Resuscitation Status: FULL: Full Resuscitation Vital Signs & Weight: Vital Signs (12 hours) Temp Pulse Resp BP Pulse Ox 05/21/19 08:10 101 H 05/21/19 08:00 93 L 05/21/19 07:54 98.6 F 101 H 20 131/86 93 L 05/21/19 07:35 91 18 94 L Weight Admit Weight 184 lb 7 oz Weight 184 lb 3 oz Most Recent Monitor Data Heart Rate from ECG 98 NIBP 129/81 NIBP BP-Mean 97 Respiration from ECG 24 SpO2 97 I&O: 05/20/19 05/21/19 05/22/19 06:59 06:59 06:59 Intake Total 1740 720 240 Balance 1740 720 240 Result Diagrams: 05/18/19 05:49 05/21/19 04:12 Phys Exam - Physical Examination Constitutional: NAD yellow plaque along tongue Respiratory: no wheezing, no rales, no rhonchi faint basilar rales left base - improved this admission Cardiovascular: RRR, no significant murmur Gastrointestinal: soft, non-tender Musculoskeletal: no edema no ttp along the left leg, no palpable abnormality Neurological: non-focal, moves all 4 limbs Psychiatric: normal affect Dx/Plan (1) Abdominal pain Code(s): R10.9 - UNSPECIFIED ABDOMINAL PAIN Status: Resolved (2) Acute respiratory failure Code(s): J96.00 - ACUTE RESPIRATORY FAILURE, UNSP W HYPOXIA OR HYPERCAPNIA Status: Acute Qualifiers: Respiratory failure complication: hypoxia Qualified Code(s): J96.01 - Acute respiratory failure with hypoxia (3) Pneumonia Code(s): J18.9 - PNEUMONIA, UNSPECIFIED ORGANISM Status: Acute Qualifiers: Pneumonia type: due to unspecified organism Laterality: bilateral Lung location: unspecified part of lung Qualified Code(s): J18.9 - Pneumonia, unspecified organism (4) Anemia Code(s): D64.9 - ANEMIA, UNSPECIFIED Status: Acute Qualifiers: Anemia type: unspecified type Qualified Code(s): D64.9 - Anemia, unspecified (5) Tobacco abuse Code(s): Z72.0 - TOBACCO USE Status: Chronic (6) Constipation Code(s): K59.00 - CONSTIPATION, UNSPECIFIED Status: Acute Qualifiers: Constipation type: unspecified constipation type Qualified Code(s): K59.00 - Constipation, unspecified (7) Cocaine abuse Code(s): F14.10 - COCAINE ABUSE, UNCOMPLICATED Status: Chronic (8) Tongue thrust Code(s): K14.8 - OTHER DISEASES OF TONGUE Status: Acute (9) Leg pain, left Code(s): M79.605 - PAIN IN LEFT LEG Status: Acute - Plan Summary - Pt admitted with atypical pneumonia, positive urine drug screen, and has responded well to antibiotics, steroids, nebulizer treatment and has been followed by Dr. Lui. While here she developed abdominal pain - negative imaging, added PPI and continued H2 ethel; evaluated with echo; developed leg pain today with negative ultrasound. High blood pressure through admission that has responded well to nifedipine. Anticipate d/c to home tomorrow - will need rx for nystatin, steroids for a few days. Pt will need to arrange a primary care provider. Today's plan: * Pneumonia * steroids de-escalated and on oral antibiotics for a few more days * needs oxygen and not funded - case management has arranged this and the medications * will complete abx tomorrow * Will need a few days of steroids to complete course * wean nebs to q6h * Thrush - start nystatin - will need a rx for this at discharge * Leg pain - check US to rule out DVT * topical muscle cream for prn use * HTN - bp's well controlled - continue amlodipine - this medication has been obtained for the patient * constipation - schedule bowel meds * dvt prophy - scd's * gi prophy - ppi due to steroids * code status full * * reviewed plan of care with patient, no questions or further needs at end of eval. Anticipate d/c tomorrow
[2019-05-21] MEDS ORDERED: predniSONE 20 MG TAB PO SCH (13:27)
--- NOTE | 2019-05-21 15:05 | ULT ---
LEFT LOWER EXTREMITY VENOUS ULTRASOUND WITH DOPPLER: 05/21/19 HISTORY: Left leg pain. COMPARISON: None. TECHNIQUE: Avilez scale, color flow, Doppler imaging with spectral waveform analysis performed in the left lower e xtremity venous system. FINDINGS: There is compressibility, presence of flow and augmentation of the common femoral vein, femoral vein, and popliteal vein. There is flow in the greater saphenous vein, profunda vein and posterior tibial vein. IMPRESSION: No evidence of thrombus in the left lower extremity deep venous system. POS: [facility]
[2019-05-21] MEDS: Nicotine 7 MG PATCH TD SCH (17:45)
[2019-05-21] MEDS: Nystatin 500,000 UNITS/5 ML UDCUP SSW SCH ×2 (17:45→21:28)
[2019-05-21 19:14] VITALS: TEMP 98.1
[2019-05-21] MEDS ORDERED: Polyethylene Glycol 3350 17 GM Packet PO SCH (21:00)
[2019-05-21] MEDS: Senokot S 8.6-50 MG TAB PO SCH (21:19)
[2019-05-22] MEDS: Budesonide 0.5 MG/2 ML NEB INH SCH (06:09)
[2019-05-22] MEDS: Senokot S 8.6-50 MG TAB PO SCH (08:36)
[2019-05-22] MEDS: Famotidine 20 MG TAB PO SCH (08:36)
[2019-05-22] MEDS: Amlodipine 5 MG TAB PO SCH (08:37)
[2019-05-22] MEDS: Nystatin 500,000 UNITS/5 ML UDCUP SSW SCH (08:39)
--- NOTE | 2019-05-22 12:25 | PDOC.PN ---
- Subjective Encounter Start Date: 05/22/19 Encounter Start Time: 12:23 Patient seen and examined, no new issues. - Objective Resuscitation Status - Order Detail: 05/13/19 23:44 Resuscitation Status Routine Resuscitation Status: FULL: Full Resuscitation Vital Signs & Weight: Vital Signs (12 hours) Pulse Resp Pulse Ox 05/22/19 12:20 85 20 90 L 05/22/19 06:09 96 24 H 96 05/22/19 00:50 74 18 96 Weight Admit Weight 184 lb 7 oz Weight 184 lb 3 oz Most Recent Monitor Data Heart Rate from ECG 98 NIBP 129/81 NIBP BP-Mean 97 Respiration from ECG 24 SpO2 97 I&O: 05/21/19 05/22/19 05/23/19 06:59 06:59 06:59 Intake Total 720 880 Balance 720 880 Result Diagrams: 05/18/19 05:49 05/21/19 04:12 Phys Exam - Physical Examination Constitutional: NAD HEENT: PERRLA, moist MMs Neck: no nodes, no JVD Respiratory: no wheezing, no rales, no rhonchi Cardiovascular: RRR, no significant murmur, no rub Gastrointestinal: soft, non-tender, no distention, positive bowel sounds Musculoskeletal: pulses present, edema present (trace) Dx/Plan (1) Acute respiratory failure Code(s): J96.00 - ACUTE RESPIRATORY FAILURE, UNSP W HYPOXIA OR HYPERCAPNIA Status: Resolved Qualifiers: Respiratory failure complication: hypoxia Qualified Code(s): J96.01 - Acute respiratory failure with hypoxia (2) Tobacco abuse Code(s): Z72.0 - TOBACCO USE Status: Chronic - Plan * pending ride arrangements * O2 and rest of equipiment arranged * advised to stop doing drugs * FU with PCP in 1 week * DC once ride arranged * case and plan d/w patient at length, she understood and agreed with this plan.
[2019-05-22 12:26] VITALS: BP 132/82
--- NOTE | 2019-05-22 15:08 | PDOC.EVN ---
Event Note - Event Note Event Note: DC SUMMARY #[id number]
--- NOTE | 2019-05-23 11:33 | DIS ---
DATE OF ADMISSION: 05/13/2019 DATE OF DISCHARGE: 05/22/2019 ADMITTING DIAGNOSES: Multifocal pneumonia, history of crack cocaine use, pneumonitis, lung injury, hypoxia, as well as chest pain. DISCHARGE DIAGNOSES: Multifocal pneumonia resolved; history of drug abuse, cocaine in specific; hypoxia, stable; hypertension, stable; chest pain, stable. HOSPITAL COURSE: This is a 54-year-old female with past medical history of crack cocaine use, presenting to the hospital complaining of shortness of breath. The patient was found to have a temperature of 101.7, O2 saturations 90, was placed on broad-spectrum antibiotics, admitted to Internal Medicine Team and followed for the duration for admission very closely, had improvement in her condition. Vital signs were stable. She was set up with home oxygen as she was deemed in need for home oxygen. White blood cell count was 9.6. The patient did not have any fevers or chills at point in time of discharge. Cultures were negative. The patient was followed closely by the Pulmonary Team as well. Advised to stop doing crack cocaine at point in time of discharge. The patient was given antibiotic prescription, Levaquin to be taken 500 mg daily for 5 days, as well as a prednisone 10 mg daily for 10 days and then discontinue both medications. Advised to follow up with her PCP within 1 week for further management and care. At point in time of discharge, the patient was stable. She denied any nausea, vomiting, diarrhea, constipation, chest pain, fevers, or shortness of breath. Case and plan discussed the patient at length. She understood and agreed with this plan. DISPOSITION: Home. FOLLOWUP: Follow up with PCP within 1 week. MEDICATIONS: See MAR. ACTIVITY: As tolerated with assistance as needed. DIET: Low-fat low-calorie high-fiber diet. CONDITION: Stable. PROGNOSIS: Guarded. Case and plan once again discussed with the patient at length. She understood and agreed with this plan. Job ID: [id number]
== END 2019-05-22 14:18 | disposition home or self-care (01) | DRG 193 ==
LOC: ERS 20:02 → IMCU/EMU 22:59 → T4-A 05-16 16:00
PROVIDERS: ADMIT Hospitalist; ATTEND Hospitalist
DX: J18.9 Pneumonia, unspecified organism (principal); J96.01 Acute respiratory failure with hypoxia; N39.0 Urinary tract infection, site not specified; J44.0 Chronic obstructive pulmonary disease with (acute) lower respiratory infection; B37.0 Candidal stomatitis; F14.10 Cocaine abuse, uncomplicated; F41.9 Anxiety disorder, unspecified; F32.9 Major depressive disorder, single episode, unspecified; E87.6 Hypokalemia; D64.9 Anemia, unspecified; K59.00 Constipation, unspecified; T38.0X5A Adverse effect of glucocorticoids and synthetic analogues, initial encounter; K21.9 Gastro-esophageal reflux disease without esophagitis; M79.605 Pain in left leg; K14.8 Other diseases of tongue; Z79.2 Long term (current) use of antibiotics; Z79.899 Other long term (current) drug therapy
CPT/HCPCS: 36415; 36416; 71045; 71046; 74018; 74176; 80048; 80306; 82805; 83880; 85025; 90471; 90732; 93306; 94640; 94660; C9113; G0009; J0360; J0692; J0696; J1940; J1956; J2270; J2405; J2920; J2930; J3490; J7512; J7620; J7626